=== PATIENT | male | born 1945 | race Caucasian/White ===

== ENCOUNTER 2016-06-13 18:46 | Emergency (ER) | payer MEDICARE, OTHER | END 2016-06-13 23:08 | disposition other institution (70) | LOC: ER 18:46 | DX: J18.0 Bronchopneumonia, unspecified organism (principal); R06.02 Shortness of breath; R06.6 Hiccough; I51.9 Heart disease, unspecified; E11.9 Type 2 diabetes mellitus without complications; Z95.1 Presence of aortocoronary bypass graft; F17.210 Nicotine dependence, cigarettes, uncomplicated; Z79.899 Other long term (current) drug therapy; Z79.4 Long term (current) use of insulin | CPT/HCPCS: 96372; 99284; 99285-25 ==

== ENCOUNTER 2016-06-13 18:46 | Inpatient (IN) | payer MEDICARE, OTHER ==
[~2016-06-13] VITALS: Ht 182.9 cm; Wt 68.0 kg
[2016-06-13 19:21] LABS: BASO % 0.1 % (0.2-1.2); EOS # 0.1 10_X3_uL (0.0-0.5); EOS % 0.5 % (0.8-7.0); GRAN # 18.8 10_X3_uL (1.8-5.4); GRAN % 86.6 % (34.0-67.9); HEMATOCRIT 43.4 % (40-51); HEMOGLOBIN 14.6 g/dL (13.7-17.5); LYMPH # 0.8 10_X3_uL (1.3-3.6); LYMPH % 3.7 % (21.8-53.1); MEAN CORPUSCULAR HEMOGLOBIN 28.7 pg (27.0-33.0); MEAN CORPUSCULAR HGB CONC 33.6 g/dL (32.0-36.0); MEAN CORPUSCULAR VOLUME 85.4 fL (79-92); MONO % 9.1 % (5.3-12.2); PLATELET COUNT 295 x10_3/uL (163-337); RED BLOOD COUNT 5.08 x10_6/uL (4.6-6.1); RED CELL DISTRIBUTION WIDTH 14.4 % (11.6-14.4)
[2016-06-13 19:26] LABS: WHITE BLOOD COUNT 21.7 x10_3/uL (4.2-9.1)
[2016-06-13 19:38] LABS: ALBUMIN 2.8 gm/dL (3.4-5.0); ALKALINE PHOSPHATASE 92 U/L (50-136); ALT/SGPT 9 U/L (7.53-40.17); AST/SGOT 7 U/L (6.66-35.34); BILIRUBIN,TOTAL 1.27 mg/dL (0.0-1.0); BLOOD UREA NITROGEN 30 mg/dL (7-18); CALCIUM 9.2 mg/dL (8.7-10.7); CARBON DIOXIDE 28 mmol/L (21-32); CREATINE KINASE 13 U/L (35-232); CREATININE 0.8 mg/dL (0.6-1.3); POTASSIUM 4.1 mmol/L (3.5-5.1); SODIUM 132 mmol/L (136-145)
[2016-06-13 19:43] LABS: INR 1.2 (0.9-1.1); PARTIAL THROMBOPLASTIN TIME 25.6 SECONDS (21.3-29.3); PROTHROMBIN TIME (PATIENT) 12.2 SECONDS (9.9-11.1)
[2016-06-13 19:48] LABS: GLUCOSE,RANDOM 546 mg/dL (70-99)
[2016-06-14 02:41] LABS: URINE BILIRUBIN NEGATIVE (NEGATIVE); URINE BLOOD 3+ (NEGATIVE); URINE LEUKOCYTE ESTERASE 2+ (NEGATIVE); URINE NITRATE NEGATIVE (NEGATIVE); URINE PROTEIN 1+ (NEGATIVE)
[2016-06-14 02:45] LABS: URINE GLUCOSE (UA) 1000 mg/dL (NORMAL)
[2016-06-14 02:47] LABS: URINE KETONE 1+ (NEGATIVE)
[2016-06-14 02:55] LABS: URINE BACTERIA 3+ (NONE SEEN); URINE WBC >15 /[HPF] (0-3)
[2016-06-14 07:08] LABS: HEMOGLOBIN 13.3 g/dL (13.7-17.5); MEAN CORPUSCULAR HEMOGLOBIN 27.8 pg (27.0-33.0); MEAN CORPUSCULAR HGB CONC 32.4 g/dL (32.0-36.0); MEAN CORPUSCULAR VOLUME 85.8 fL (79-92); MEAN PLATELET VOLUME 10.2 fl (7.5-11.5); RED BLOOD COUNT 4.78 x10_6/uL (4.6-6.1); RED CELL DISTRIBUTION WIDTH 14.4 % (11.6-14.4); WHITE BLOOD COUNT 16.6 x10_3/uL (4.2-9.1)
[2016-06-14 07:26] LABS: AHDL CHOLESTEROL 25 mg/dL (>40); BLOOD UREA NITROGEN 27 mg/dL (7-18); CALCIUM 8.8 mg/dL (8.7-10.7); CARBON DIOXIDE 33 mmol/L (21-32); CHOLESTEROL 132 mg/dL (0-200); CREATININE 0.6 mg/dL (0.6-1.3); GLUCOSE,RANDOM 250 mg/dL (70-99); LDL CHOLESTEROL 86 mg/dL (0-99); POTASSIUM 3.5 mmol/L (3.5-5.1); SODIUM 137 mmol/L (136-145); TRIGLYCERIDES 87 mg/dL (30-200)
[2016-06-15 07:16] LABS: HEMOGLOBIN 12.6 g/dL (13.7-17.5); MEAN CORPUSCULAR HEMOGLOBIN 28.7 pg (27.0-33.0); MEAN CORPUSCULAR HGB CONC 33.2 g/dL (32.0-36.0); MEAN CORPUSCULAR VOLUME 86.6 fL (79-92); RED BLOOD COUNT 4.39 x10_6/uL (4.6-6.1); RED CELL DISTRIBUTION WIDTH 14.4 % (11.6-14.4); WHITE BLOOD COUNT 15.1 x10_3/uL (4.2-9.1)
[2016-06-15 07:38] LABS: BLOOD UREA NITROGEN 16 mg/dL (7-18); CALCIUM 8.4 mg/dL (8.7-10.7); CARBON DIOXIDE 31 mmol/L (21-32); CREATININE 0.6 mg/dL (0.6-1.3); GLUCOSE,RANDOM 119 mg/dL (70-99); POTASSIUM 3.2 mmol/L (3.5-5.1); SODIUM 140 mmol/L (136-145)
[2016-06-16 06:59] LABS: HEMATOCRIT 37.8 % (40-51); HEMOGLOBIN 12.4 g/dL (13.7-17.5); MEAN CORPUSCULAR HEMOGLOBIN 28.2 pg (27.0-33.0); MEAN CORPUSCULAR HGB CONC 32.8 g/dL (32.0-36.0); MEAN CORPUSCULAR VOLUME 85.9 fL (79-92); MEAN PLATELET VOLUME 10.5 fl (7.5-11.5); RED BLOOD COUNT 4.4 x10_6/uL (4.6-6.1); RED CELL DISTRIBUTION WIDTH 14.3 % (11.6-14.4); WHITE BLOOD COUNT 12.3 x10_3/uL (4.2-9.1)
[2016-06-16 07:26] LABS: BLOOD UREA NITROGEN 15 mg/dL (7-18); CALCIUM 8.6 mg/dL (8.7-10.7); CARBON DIOXIDE 29 mmol/L (21-32); CREATININE 0.6 mg/dL (0.6-1.3); GLUCOSE,RANDOM 128 mg/dL (70-99); POTASSIUM 3.6 mmol/L (3.5-5.1); SODIUM 142 mmol/L (136-145)
[2016-06-18 07:21] LABS: HEMATOCRIT 37.7 % (40-51); HEMOGLOBIN 12.2 g/dL (13.7-17.5); MEAN CORPUSCULAR HEMOGLOBIN 28.1 pg (27.0-33.0); MEAN CORPUSCULAR HGB CONC 32.4 g/dL (32.0-36.0); MEAN CORPUSCULAR VOLUME 86.9 fL (79-92); MEAN PLATELET VOLUME 10.6 fl (7.5-11.5); RED BLOOD COUNT 4.34 x10_6/uL (4.6-6.1); RED CELL DISTRIBUTION WIDTH 14.5 % (11.6-14.4); WHITE BLOOD COUNT 9.1 x10_3/uL (4.2-9.1)
[2016-06-18 07:27] LABS: BLOOD UREA NITROGEN 16 mg/dL (7-18); CALCIUM 8.9 mg/dL (8.7-10.7); CARBON DIOXIDE 30 mmol/L (21-32); CREATININE 0.6 mg/dL (0.6-1.3); GLUCOSE,RANDOM 201 mg/dL (70-99); POTASSIUM 3.9 mmol/L (3.5-5.1); SODIUM 144 mmol/L (136-145)
== END 2016-06-19 12:24 | disposition home or self-care (01) | DRG 190 ==
LOC: ER 18:46 → MS 23:08
PROVIDERS: Emergency Medicine; Family Medicine; ADMIT Family Medicine
DX: J44.0 Chronic obstructive pulmonary disease with (acute) lower respiratory infection (principal); J18.0 Bronchopneumonia, unspecified organism; N39.0 Urinary tract infection, site not specified; E87.1 Hypo-osmolality and hyponatremia; J44.1 Chronic obstructive pulmonary disease with (acute) exacerbation; N20.0 Calculus of kidney; E11.65 Type 2 diabetes mellitus with hyperglycemia; I10 Essential (primary) hypertension; K59.00 Constipation, unspecified; R54 Age-related physical debility; R26.81 Unsteadiness on feet; B96.20 Unspecified Escherichia coli [E. coli] as the cause of diseases classified elsewhere; I25.10 Atherosclerotic heart disease of native coronary artery without angina pectoris; R06.6 Hiccough; N40.1 Benign prostatic hyperplasia with lower urinary tract symptoms; R41.0 Disorientation, unspecified; F17.210 Nicotine dependence, cigarettes, uncomplicated; Z79.899 Other long term (current) drug therapy; Z79.4 Long term (current) use of insulin; Z95.1 Presence of aortocoronary bypass graft
CPT/HCPCS: 36415; 71020; 71250; 80048; 80053; 80061; 81001; 82550; 82553; 82962; 83036; 83605; 83880; 85025; 85610; 85730; 86738; 87040; 87086; 87186; 87449; 93005; 94664; 96365; 96366; 96372; 99070; 99284; 99285-25; J3230